=== PATIENT | female | born 1945 | race Caucasian/White ===

== ENCOUNTER → 2016-12-28 | Outpatient (CLI) | payer MEDICARE ==
--- NOTE | 2016-12-28 14:15 | REPMRS ---
Patient History The patient states she has not had a clinical breast exam in over a year. Patient is postmenopausal. Family history of colorectal cancer in brother at age 50 or over. Benign cyst aspiration of the right breast, 1992. [facility] Woman Screen Mammo: December 28, 2016 - Exam #: [id number] Bilateral CC and MLO view(s) were taken. Technologist: Lesli Akbar, Technologist Prior study comparison: October 23, 2014, digital woman screen mammo performed at [facility]. October 22, 2013, digital woman screen mammo performed at [facility]. October 10, 2012, digital woman screen mammo performed at [facility]. FINDINGS: There are scattered fibroglandular densities. There has been no change in the appearance of the mammogram from the prior studies. There is a mild amount of scattered fibroglandular density which is fairly symmetric. There is no interval development of dominant mass, architectural distortion, or clustered microcalcification suggestive of malignancy. ASSESSMENT: BI-RADS/ACR category 1 mammogram. Negative. Recommendation Routine screening mammogram in 1 year (for women over age 40). This mammogram was interpreted with the aid of an FDA-approved computer-aided dectection system. Electronically Signed By: Ed Beasley MD 12/28/16 [id number]
== END ==
LOC: M WHC 12:51
PROVIDERS: ATTEND Internal Medicine
DX: Z12.31 Encounter for screening mammogram for malignant neoplasm of breast (principal); Z78.0 Asymptomatic menopausal state; Z80.0 Family history of malignant neoplasm of digestive organs

== ENCOUNTER → 2017-09-20 | Outpatient (CLI) | payer MEDICARE | LOC: M RAD 10:23 | DX: K76.0 Fatty (change of) liver, not elsewhere classified (principal); Z90.49 Acquired absence of other specified parts of digestive tract | CPT/HCPCS: 76700 ==

== ENCOUNTER → 2018-12-13 | Outpatient (CLI) | payer MEDICARE ==
--- NOTE | 2018-12-13 16:45 | REPMRS ---
Patient History The patient states she has not had a clinical breast exam in over a year. Patient is postmenopausal. Family history of colorectal cancer at age 50 or over in brother. Benign cyst aspiration of the right breast, 1992. No Hormone Replacement Therapy Digital Woman Screen Mammo: December 13, 2018 - Exam #: [id number] Bilateral CC and MLO view(s) were taken. Technologist: Lesli Akbar, Technologist Prior study comparison: December 28, 2016, digital woman screen mammo performed at [facility]. October 23, 2014, digital woman screen mammo performed at [facility]. October 22, 2013, digital woman screen mammo performed at [facility]. FINDINGS: There are scattered fibroglandular densities. There is a moderate amount of residual fibroglandular tissue which is fairly symmetric. There is no interval development of dominant mass, architectural distortion, or clustered microcalcification typical of malignancy. There has been no change in the appearance of the mammogram from the prior studies. 3-D tomosynthesis shows no additional findings. Assessment: BI-RADS/ACR category 1 mammogram. Negative Mammogram. Recommendation Routine screening mammogram of both breasts in 1 year (for women over age 40). This patient's Lifetime Breast Cancer RIsk is estimated at 4.2 %. This mammogram was interpreted with the aid of an FDA-approved computer-aided dectection system. Electronically Signed By: Ed Beasley MD 12/13/18 [id number]
== END ==
LOC: M WHC 15:03
PROVIDERS: ATTEND Internal Medicine
DX: Z12.31 Encounter for screening mammogram for malignant neoplasm of breast (principal)

== ENCOUNTER 2018-12-27 09:04 | Day surgery (SDC) | payer MEDICARE ==
[~2018-12-27] VITALS: Ht 152.4 cm; Wt 72.1 kg
[~2018-12-27 09:04] MED LIST: LIDOCAINE 2% INJ 100 MG/5 ML SDV (FOR ANES.) As Ordered ONE; PROPOFOL 200 MG/20 ML VIAL As Ordered ONE
[2018-12-27] MEDS: NS 1,000 ML IV ONE (09:37)
--- NOTE | 2018-12-27 10:53 | ROOR ---
Patient Name: Uzma Sinclair Procedure Date: 12/27/2018 10:28 AM Date of : 1945 Age: 73 Room: [facility] Gender: Female Note Status: Finalized Procedure: Colonoscopy Indications: Screening for colorectal malignant neoplasm Providers: Chase Anderson Jr, MD Referring MD: DK WICK MD Requesting Provider: Medicines: Propofol per Anesthesia Complications: No immediate complications. Procedure: Pre-Anesthesia Assessment: - Prior to the procedure, a History and Physical was performed, and patient medications and allergies were reviewed. The patient is competent. The risks and benefits of the procedure and the sedation options and risks were discussed with the patient. All questions were answered and informed consent was obtained. Patient identification and proposed procedure were verified by the physician and the nurse in the pre-procedure area and in the procedure room. Mental Status Examination: alert and oriented. Airway Examination: normal oropharyngeal airway and neck mobility. Respiratory Examination: clear to auscultation. CV Examination: normal. ASA Grade Assessment: II - A patient with mild systemic disease. After reviewing the risks and benefits, the patient was deemed in satisfactory condition to undergo the procedure. The anesthesia plan was to use moderate sedation / analgesia (conscious sedation). Immediately prior to administration of medications, the patient was re-assessed for adequacy to receive sedatives. The heart rate, respiratory rate, oxygen saturations, blood pressure, adequacy of pulmonary ventilation, and response to care were monitored throughout the procedure. The physical status of the patient was re-assessed after the procedure. The Colonoscope was introduced through the anus and advanced to the ascending colon. The patient tolerated the procedure well. The quality of the bowel preparation was adequate. The colonoscopy was performed with moderate difficulty due to restricted mobility of the colon. Successful completion of the procedure was aided by changing the patient to a supine position, using manual pressure and applying abdominal pressure. Findings: The rectum, recto-sigmoid colon, transverse colon, hepatic flexure and distal ascending colon appeared normal. Many small and large-mouthed diverticula were found in the sigmoid colon and descending colon. Impression: - The rectum, recto-sigmoid colon, transverse colon, hepatic flexure and distal ascending colon are normal. - Diverticulosis in the sigmoid colon and in the descending colon. - No specimens collected. Recommendation: - Discharge patient to home (ambulatory). - Repeat colonoscopy in 10 years for screening purposes. Chase Anderson MD Chase Anderson Jr, MD 12/27/2018 10:53:21 AM Electronically signed by Chase Anderson Jr, MD Number of Addenda: 0 Note Initiated On: 12/27/2018 10:28 AM Estimated Blood Loss: Estimated blood loss: none.
[2018-12-27 11:10] VITALS: BP 123/71
== END 2018-12-27 11:22 | disposition home or self-care (01) ==
LOC: M OPP 09:04
PROVIDERS: ATTEND Surgery
DX: K57.30 Diverticulosis of large intestine without perforation or abscess without bleeding (principal); Z12.11 Encounter for screening for malignant neoplasm of colon

== ENCOUNTER → 2020-09-28 | Outpatient (CLI) | payer MEDICARE ==
--- NOTE | 2020-09-28 12:25 | REPMRS ---
Patient History The patient states she has not had a clinical breast exam in over a year. Family history of colorectal cancer at age 50 or over in brother. Benign cyst aspiration of the right breast, 1992. No Hormone Replacement Therapy Digital Woman Screen Mammo: September 28, 2020 - Exam #: [id number] Bilateral CC and MLO view(s) were taken. Technologist: Alicia Hall, Technologist Prior study comparison: December 13, 2018, bilateral digital woman screen mammo performed at [facility]. December 28, 2016, digital woman screen mammo performed at [facility]. October 23, 2014, digital woman screen mammo performed at [facility]. FINDINGS: There are scattered fibroglandular densities. The Volpara volumetric breast density category is: B. There is a moderate amount of residual fibroglandular tissue which is fairly symmetric. There is no interval development of dominant mass, architectural distortion, or grouped microcalcification typical of malignancy. There has been no change in the appearance of the mammogram from the prior studies. 3-D tomosynthesis shows no additional findings. Assessment: BI-RADS/ACR category 1 mammogram. Negative Mammogram. Recommendation Routine screening mammogram of both breasts in 1 year (for women over age 40). This patient's [facility] Lifetime Breast Cancer RIsk is estimated at 3.7 %. This mammogram was interpreted with the aid of an FDA-approved computer-aided dectection system. Electronically Signed By: Ed Beasley MD 09/28/20 [id number]
== END ==
LOC: M WHC 11:11
PROVIDERS: ATTEND Internal Medicine
DX: Z12.31 Encounter for screening mammogram for malignant neoplasm of breast (principal); Z80.0 Family history of malignant neoplasm of digestive organs

== ENCOUNTER → 2021-10-22 | Outpatient (CLI) | payer MEDICARE ==
[2021-10-22 16:16] LABS: BASO % 0.5 % (0.0-1.0); EOS # 0.1 10^3/uL (0.0-0.5); EOS % 0.8 % (0.0-3.0); HEMATOCRIT 42.1 % (36.0-47.0); HEMOGLOBIN 13.7 g/dl (12.0-15.5); LYMPH # 2.1 10^3/uL (1.5-5.0); LYMPH % 27.2 % (24.0-44.0); MEAN CORPUSCULAR HEMOGLOBIN 31.2 pg (27.0-33.0); MEAN CORPUSCULAR HGB CONC 32.5 g/dl (32.0-36.5); MEAN CORPUSCULAR VOLUME 95.9 fl (80.0-96.0); MONO # 0.3 10^3/uL (0.0-0.8); MONO % 4.2 % (2.0-8.0); NEUTROPHILS # 5.2 10^3/uL (1.5-8.5); NEUTROPHILS % 66.8 % (36.0-66.0); PLATELET COUNT, AUTOMATED 344 10^3/uL (150-450); RED BLOOD COUNT 4.39 10^6/uL (4.00-5.40); WHITE BLOOD COUNT 7.8 10^3/uL (4.0-10.0)
[2021-10-22 16:57] LABS: ALT/SGPT 21 U/L (12-78); BILIRUBIN,TOTAL 0.3 MG/DL (0.2-1.0); BLOOD UREA NITROGEN 8 MG/DL (7-18); CALCIUM LEVEL 9.2 MG/DL (8.8-10.2); CARBON DIOXIDE LEVEL 31 MEQ/L (21-32); CHLORIDE LEVEL 107 MEQ/L (98-107); CREATININE FOR GFR 0.63 MG/DL (0.55-1.30); GLOMERULAR FILTRATION RATE > 60.0 (>39); GLUCOSE, FASTING 105 MG/DL (70-100); POTASSIUM SERUM 4.1 MEQ/L (3.5-5.1); SODIUM LEVEL 143 MEQ/L (136-145); TOTAL PROTEIN 6.8 GM/DL (6.4-8.2)
== END ==
LOC: M WUC 11:40
PROVIDERS: ATTEND Student in an Organized Health Care Education/Training Program
DX: R42 Dizziness and giddiness (principal)

== ENCOUNTER → 2022-09-01 | Outpatient (CLI) | payer MEDICARE | LOC: M WHC 13:05 | PROVIDERS: ATTEND Internal Medicine | DX: Z12.31 Encounter for screening mammogram for malignant neoplasm of breast (principal) ==

== ENCOUNTER 2023-09-12 08:19 | Day surgery (SDC) | payer MEDICARE ==
[~2023-09-12] VITALS: Ht 152.4 cm; Wt 74.8 kg
[~2023-09-12 08:19] MED LIST changes: +ASCO500C3 PO; +B-12100010 PO; +CALCTAB15 PO; +CIDA500T2 PO; +CLAR10CA3 PO; -LIDOCAINE 2% INJ 100 MG/5 ML SDV (FOR ANES.) As Ordered ONE; +MULTTAB24 PO; -PROPOFOL 200 MG/20 ML VIAL As Ordered ONE
[2023-09-12] MEDS: PHENYLEPHRINE 2.5% OPHTH SOL 2ML OD SCH (08:50)
[2023-09-12] MEDS: PROPARACAINE 0.5% OPHTH SOL 15ML OD ONE (08:50)
[2023-09-12] MEDS: OFLOXACIN 0.3 % (OCUFLOX) OPTH SOL 5ML OD SCH (08:50)
[2023-09-12] MEDS: TROPICAMIDE 1% OPHTH SOLN 15ML OD SCH (08:51)
[2023-09-12] MEDS: ATROPINE SULFATE 1% OPHTH SOLN 2ML BTL OD SCH (08:51)
[2023-09-12] MEDS ORDERED: fentaNYL 100 MCG/2 ML INJECTION As Ordered ONE (09:16)
[2023-09-12] MEDS ORDERED: MIDAZOLAM INJ 2MG/2ML VIAL As Ordered ONE (09:16)
[2023-09-12] MEDS: BSS IRR 500ML/OMIDRIA 4ML IRR BAG (OR ONLY) As Ordered ONE (09:19)
[2023-09-12] MEDS: LIDOCAINE 1% SDV 5ML VIAL As Ordered ONE (09:19)
[2023-09-12] MEDS: CEFUROXIME 1MG/0.1ML INTRACAMERAL INJ As Ordered ONE (09:19)
[2023-09-12 09:25] VITALS: BP 143/68; TEMP 97.9; O2SAT 92
== END 2023-09-12 09:59 | disposition home or self-care (01) ==
LOC: M SDC 08:19
PROVIDERS: ATTEND Ophthalmology
DX: H25.11 Age-related nuclear cataract, right eye (principal); Z90.710 Acquired absence of both cervix and uterus; Z79.899 Other long term (current) drug therapy
CPT/HCPCS: 66984; J0697; J1097; J2250; J3010; V2632

== ENCOUNTER 2024-01-22 10:45 | Day surgery (SDC) | payer MEDICARE ==
[~2024-01-22] VITALS: Ht 152.4 cm; Wt 73.8 kg
[~2024-01-22 10:45] MED LIST changes: +CEFUROXIME 1MG/0.1ML INTRACAMERAL INJ As Ordered ONE; +LIDOCAINE 1% SDV 5ML VIAL As Ordered ONE; +LR 1,000 ML IV SCH
[2024-01-22] MEDS: PHENYLEPHRINE 2.5% OPHTH SOL 2ML OS SCH (12:33)
[2024-01-22] MEDS: TETRACAINE 0.5% OPHTH SOLN 4ML OS SCH (12:34)
[2024-01-22] MEDS: ATROPINE SULFATE 1% OPHTH SOLN 2ML BTL OS SCH (12:34)
[2024-01-22] MEDS: FLURBIPROFEN 0.03% OPHTH SOLN 2.5 ML OS SCH (12:34)
[2024-01-22] MEDS ORDERED: MIDAZOLAM INJ 2MG/2ML VIAL As Ordered ONE (13:53)
[2024-01-22 14:32] VITALS: BP 154/70; TEMP 98.1; O2SAT 96
== END 2024-01-22 14:53 | disposition home or self-care (01) ==
LOC: M SDC 10:45
PROVIDERS: ATTEND Ophthalmology
DX: H25.12 Age-related nuclear cataract, left eye (principal); G43.909 Migraine, unspecified, not intractable, without status migrainosus; Z79.899 Other long term (current) drug therapy
CPT/HCPCS: 66984; J0697; J2250; V2632

== ENCOUNTER → 2024-05-21 | Outpatient (REF) | payer MEDICARE ==
[~2024-05-21] MED LIST changes: -CEFUROXIME 1MG/0.1ML INTRACAMERAL INJ As Ordered ONE; -LIDOCAINE 1% SDV 5ML VIAL As Ordered ONE; -LR 1,000 ML IV SCH
== END ==
LOC: M LAB REF 13:32
PROVIDERS: ATTEND Internal Medicine
DX: Z13.89 Encounter for screening for other disorder (principal)

== ENCOUNTER → 2024-05-23 | Outpatient (CLI) | payer MEDICARE | LOC: M WUC 11:07 | PROVIDERS: ATTEND Internal Medicine | DX: M51.361 Other intervertebral disc degeneration, lumbar region with lower extremity pain only (principal) ==

== ENCOUNTER → 2024-08-03 | Outpatient (CLI) | payer MEDICARE | LOC: M RAD 12:51 | PROVIDERS: ATTEND Internal Medicine | DX: R51.9 Headache, unspecified (principal) ==

== ENCOUNTER → 2024-11-21 | Outpatient (REF) | payer MEDICARE ==
[2024-11-21 19:01] LABS: URIC ACID 4.1 MG/DL (3.1-7.8)
[2024-11-21 19:04] LABS: C REACTIVE PROTEIN QUANTITATIV 7.19 MG/DL (<1.0)
== END ==
LOC: M LAB REF 17:38
PROVIDERS: ATTEND Nurse Practitioner Family
DX: M25.50 Pain in unspecified joint (principal)

== ENCOUNTER → 2025-01-21 | Outpatient (REF) | payer MEDICARE | LOC: M LAB REF 17:26 | PROVIDERS: ATTEND Internal Medicine | DX: M25.20 Flail joint, unspecified joint (principal) ==

== ENCOUNTER → 2025-02-27 | Outpatient (REF) | payer MEDICARE | LOC: M LAB REF 12:20 | PROVIDERS: ATTEND Internal Medicine | DX: M35.3 Polymyalgia rheumatica (principal) ==

== ENCOUNTER → 2025-04-08 | Outpatient (REF) | payer MEDICARE | LOC: M LAB REF 13:57 | PROVIDERS: ATTEND Internal Medicine | DX: M35.3 Polymyalgia rheumatica (principal) ==

== ENCOUNTER → 2025-05-22 | Outpatient (REF) | payer MEDICARE | LOC: M LAB REF 12:29 | PROVIDERS: ATTEND Internal Medicine | DX: M35.3 Polymyalgia rheumatica (principal) ==

== ENCOUNTER 2025-05-23 08:57 | Emergency (ER) | payer MEDICARE ==
[~2025-05-23] VITALS: Ht 152.4 cm; Wt 59.1 kg
[2025-05-23 10:58] VITALS: TEMP 97.6
[2025-05-23 11:14] VITALS: BP 153/71; O2SAT 99
[2025-05-23 11:59] LABS: KETONE, URINE AUTO RFX NEGATIVE (NEGATIVE); MUCUS, URINE RFX SMALL (NEGATIVE); NITRITE, URINE AUTO RFX NEGATIVE (NEGATIVE); RBC, URINE AUTO RFX 3 /HPF (0-3); SQUAM EPITHELIAL CELL UR AURFX 2 /HPF (0-6); WBC, URINE AUTO RFX 1 /HPF (0-3)
[2025-05-23 12:21] LABS: LEUKOCYTE ESTERASE UR AUTO RFX TRACE (NEGATIVE)
== END 2025-05-23 11:16 | disposition home or self-care (01) ==
LOC: M ED 08:57
DX: N81.10 Cystocele, unspecified (principal); Z79.810 Long term (current) use of selective estrogen receptor modulators (SERMs)

== ENCOUNTER → 2025-06-02 | Outpatient (CLI) | payer MEDICARE | LOC: M WHC 12:24 | PROVIDERS: ATTEND Internal Medicine | DX: M85.89 Other specified disorders of bone density and structure, multiple sites (principal) ==